=== PATIENT | male | born 1965 | race Caucasian/White ===

== ENCOUNTER 2016-09-12 20:46 | Emergency (ER) | payer MEDICAID, OTHER ==
[~2016-09-12] VITALS: Ht 177.8 cm; Wt 77.3 kg
[2016-09-12 20:49] VITALS: BP 169/106; PULSE 74; RESP 16; O2SAT 100
--- NOTE | 2016-09-12 21:36 | ED.REPORT ---
HPI-Dental/Mouth Prob Date of Service Sep 12, 2016 ED Provider: Eris Mena MD The patient is a 51 year old male who presents to the ED c/o of tooth pain onset last week. He reports associated jaw pain and headache for the past 2 days. Patient has not seen a dentist recently. He reports that he needs multiple teeth extracted. He is not having any difficulty breathing or swallowing. He has not had any fevers. He has not seen a dentist in many years. Nursing Notes Stated Complaint: TOOTH PAIN, HEADACHE Chief Complaint: Dental Nursing Notes Reviewed: Yes Allergies: Coded Allergies: Penicillins (Verified Allergy, Intermediate, hives, 09/12/16) Scheduled PRN Ibuprofen (Ibuprofen) 600 Mg Tablet 600 MG PO QID PRN PRN For Pain General Time Seen by MD: 21:34 Chief Complaint Tooth pain Hx Obtained From: Patient Arrived By: Walk-in Onset Occurred: Just prior to arrival Symptom Duration: Since onset Quality: Painful Severity: Current: Moderate Recent Healthcare: No recent doctor visit, No recent hospitalization Similar Sx Previous: No Past Medical History Past Medical History denies Past Surgical History denies Smoking History Unknown if Ever Smoker Social History Other Social History: Local resident Ambulatory Status Independent Review of Systems Review of Systems Note: jaw pain Constitutional: Denies: Chills, Fever Ears / Nose / Throat: Reports: Toothache Complete sys rev & neg: except as marked. Neurologic: Reports: Headache Physical Exam Initial Vital Signs Vital Signs (First) Date Time Temp Pulse Resp B/P Pulse Ox O2 Delivery O2 Flow Rate FiO2 09/12/16 20:49 37 74 16 169/106 100 Room Air Initial VS: Reviewed ENT: Mucous membranes moist, Tympanic membs NL Dental / Gums: Positive: Dental caries present, Dentition poor multiple dental carries poor dentition throughout no swelling or drainage Neck: Atraumatic, Supple General/Constitutional: Awake, Alert, No acute distress, Cooperative Head / Eyes: Atraumatic, Normocephalic no swelling of face or lips Cardiovascular: Heart rate NL, Regular rhythm Neurologic: Oriented X3, Speech NL, No motor deficits Upper Extremity / MS: Atraumatic, Inspection NL, No deformity Lower Extremity / Pelvis / MS: Atraumatic, Inspection NL, No deformity Skin: Atraumatic, Warm, Dry Re-Eval/Medical Decision Med Decision/Clinical Course The patient is a 51 year old male who presents to the ED c/o of tooth pain onset last week. He reports associated jaw pain and headache for the past 2 days. Patient has not seen a dentist recently. He reports that he needs multiple teeth extracted. He is not having any difficulty breathing or swallowing. He has not had any fevers. He has not seen a dentist in many years. Overall presentation consistent with dental caries. There may be some very mild surrounding abscess though nothing amenable to incision and drainage. Considered other possible causes of dental pain including periapical abscess, gingivitis, Anjum's angina, sinusitis, and molar impaction but these are unlikely based on the history and exam. Discussed with the patient the low cost clinic resources available. Also reviewed precautions for return to the ED and the importance of f/u with a dentist, which he agreed to do. 2140: Pt checked. Plan for Toradol and discharge. Pt understands and agrees with plan. F/U and RTER warnings given. All questions addressed. Prescription for clindamycin given. Counseled Regarding: Diagnosis, Lab results, Need for follow-up, When/why to return to ED Discharge & Departure Primary Impression: Dental caries Additional Impression: Pain, dental Disposition: Home Discharge Condition Condition: Stable Patient Instructions: Dental Caries (ED) Additional Instructions: Thank you for entrusting us with your care today. You need to see a dentist immediately. Return to the Emergency Department for any new or worsening symptoms including fever, chills, vomiting, nausea, increased pain, and bleeding. I hope you feel better soon! Referrals: [facility] (PCP) [facility] Florentino Attestation Portion of this note were transcribed by Melba Pulido. I, Dr. Mena, personally performed the history, physical exam, and medical decision-making: I reviewed and confirmed the accuracy for the information in the transcribed note. Signed by: florentino Green, 09/12/16 2300 copies to: [facility] Eris Mena MD Sep 12, 2016 21:36 Melba Pulido Sep 12, 2016 22:03
[2016-09-12 22:34] VITALS: BP 155/97; PULSE 70; RESP 16; O2SAT 100
[2016-09-12] MEDS ORDERED: IBUP-1827 PO (22:43)
[2016-09-13] MEDS ORDERED: _Clindamycin 150 mg Capsule PO SCH (06:30)
== END 2016-09-12 22:48 | disposition home or self-care (01) ==
LOC: SED 20:46
DX: K02.9 Dental caries, unspecified (principal); R68.84 Jaw pain; R51 Headache; Z88.0 Allergy status to penicillin
CPT/HCPCS: 99283; J1885

== ENCOUNTER 2016-10-06 10:27 | Emergency (ER) | payer OTHER ==
[~2016-10-06] VITALS: Ht 177.8 cm; Wt 81.8 kg
[~2016-10-06 10:27] MED LIST: IBUP-1827 PO
[2016-10-06 10:34] VITALS: BP 137/93; PULSE 59; RESP 18; O2SAT 98
[2016-10-06] MEDS ORDERED: diphenhydrAMINE 25 mg Capsule PO ONE (13:20)
[2016-10-06 13:30] LABS: Mean Corpuscular Hemoglobin 31.9 pg (27.0-35.0); Mean Corpuscular Volume 89.9 fL (81-100); NEUTROPHILS % (AUTO) 65.1 % (40-74); Platelet Count 183 bil/L (150-400)
[2016-10-06 13:31] LABS: BASOPHILS % (AUTO) 0.5 % (0-3); EOSINOPHILS % (AUTO) 2.9 % (0-5); MONOCYTES % (AUTO) 5.7 % (4-12)
--- NOTE | 2016-10-06 13:47 | ED.REPORT ---
HPI-Headache Date of Service Oct 06, 2016 ED Provider: Juan Carlos Gar MD Patient is a 51-year-old male with hepatitis C, history of stroke a couple of years ago, and hypertension who presents to the emergency department with several weeks of headache, tinnitus in both ears worsening approximately one week ago in which she has had before but it is worse than ever. Yesterday he had the feeling disequilibrium, and this morning almost fell into a flower bed as he has been feeling unsteady on his feet. His dizziness seems to be worse when walking. Originally he attributed this to his headaches high blood pressure is even off of his blood pressure medicines but has now restarted his lisinopril and metoprolol. He additionally reports pain at the base of his neck and shoulders. He drinks a lot of water and stay hydrated. He has no abdominal pain., Vision changes, chest pain, shortness of breath, fever, chills , rhinorrhea, or sore throat. Nursing Notes Stated Complaint: HEADACHE,EARS BUZZING,DIZZY,DIFFICULTY WALKING Chief Complaint: Neuro Symptoms/ Deficits Allergies: Coded Allergies: Penicillins (Verified Allergy, Intermediate, hives, 09/12/16) Scheduled Meclizine (Bonine) 25 Mg Tab.chew 25 MG PO TID Scheduled PRN Ibuprofen (Ibuprofen) 600 Mg Tablet 600 MG PO QID PRN PRN For Pain General Time Seen by MD: 12:20 Chief Complaint Headache Hx Obtained From: Patient Arrived By: Walk-in Sudden in Onset?: No Onset Occurred: More than a week ago... (3 weeks) Location: : Generalized (irritating) Past Medical History Past Medical History Hepatitis C Stroke a couple years ago Tympanostomy tubes from age [age] Hypertension Past Surgical History Multiple musculoskeletal and soft tissue surgeries including right flank and right knee Smoking History Current Every Day Smoker (one pack per day), Unknown if Ever Smoker Social History Patient lives at [facility] Alcohol Use: Denies alcohol use Drug Use: Other (former IV drug user clean for 11 years.) Other Social History: Local resident Ambulatory Status Independent Review of Systems A comprehensive review of systems was conducted with the patient and found to be negative except as above in the History of Present Illness. Physical Exam Initial Vital Signs Vital Signs (First) Date Time Temp Pulse Resp B/P Pulse Ox O2 Delivery O2 Flow Rate FiO2 10/06/16 10:34 37.1 59 18 137/93 98 10/06/16 15:23 Room Air Initial VS: Reviewed, Vital signs normal ENT: Mucous membranes moist, Conjunctiva normal, No scleral icterus Respiratory: Breath sounds normal Cardiovascular: Regular rate & rhythm Abdomen / GI: Soft, Non-tender, No distention Extremities: Vascular intact Skin: Warm, Dry, No cyanosis Psychiatric: Mood/affect normal, Behavior normal, Normal thought content General/Constitutional: Awake, Alert, No acute distress Head / Eyes: Atraumatic, Normocephalic, PERRL Eye Movement: Negative: Nystagmus horizontal, Nystagmus rotational Neurologic: Oriented X3, Speech NL, No motor deficits, Cerebellar NL Mildly decreased sensation to left mandibular area residual from previous stroke, no change per patient. Twitching of left angle of mouth with blinking. Scar tissue bump on left lower lip Cardiovascular: Peripheral circulation NL Interpretation & Diagnostics Interpretation & Diagnostics: CBC, CMP unremarkable Lab Results Interpretation Result Diagram: 10/06/16 1310 10/06/16 1310 Test 10/06/16 12:54 10/06/16 13:10 Hold Cazares Top Tube Received (Received) White Blood Count 8.6th/mm3 (3.8-10.1) Red Blood Count 4.76mil/mm3 (4.40-5.80) Hemoglobin 15.2g/dL (13.8-17.2) Hematocrit 42.8% (41.0-50.0) Mean Corpuscular Volume 89.9fL (81-100) Mean Corpuscular Hemoglobin 31.9pg (27.0-35.0) Mean Corpuscular Hemoglobin Concent 35.5% (32.0-37.0) Red Cell Distribution Width 11.9% (12.3-15.4) Platelet Count 183bil/L (150-400) Neutrophils (%) (Auto) 65.1% (40-74) Lymphocytes (%) (Auto) 25.7% (14-46) Monocytes (%) (Auto) 5.7% (4-12) Eosinophils (%) (Auto) 2.9% (0-5) Basophils (%) (Auto) 0.5% (0-3) Sodium Level 139mEq/L (134-144) Potassium Level 4.0mEq/L (3.5-5.2) Chloride Level 104mEq/L (97-108) Carbon Dioxide Level 21mmol/L (18-29) Blood Urea Nitrogen 15mg/dL (6-24) Creatinine 0.82mg/dL (0.76-1.27) Estimat Glomerular Filtration Rate 105mL/min (>59) Glucose Level 91mg/dL (60-99) Calcium Level 9.1mg/dL (8.5-10.1) Total Bilirubin 0.5mg/dL (0.0-1.2) Aspartate Amino Transf (AST/SGOT) 20U/L (0-50) Alanine Aminotransferase (ALT/SGPT) 22U/L (0-44) Alkaline Phosphatase 34U/L (25-150) Total Protein 6.8g/dL (6.4-8.4) Albumin 4.4g/dL (3.4-5.0) Re-Eval/Medical Decision Med Decision/Clinical Course Patient complains of headache and dizziness with slow onset over the last week. He additionally has tinnitus. She was given Benadryl and Reglan with improvement of his headache. Patient has taken meclizine or similar medication in the past to help with dizziness. No gross abnormalities and laboratory evaluation. He was given a prescription for meclizine and discharged home with improvement of symptoms. Discharge & Departure Impression: Primary Impression: Headache Headache type: tension-type Headache chronicity pattern: episodic headache Intractability: not intractable Qualified Code: G44.219 - Episodic tension- type headache, not intractable Additional Impression: Dizziness Disposition: Home Discharge Condition All VS Reviewed: Yes Patient Instructions: Acute Headache (ED) Additional Instructions: Please call the residency clinic to schedule an appointment with her primary care provider. Make sure to mention that you need a emergency room follow-up. I am glad to hear that her headache has improved. You will be given a prescription for meclizine to help with the dizziness. If you have acute onset headache that is the worst headache of your life return to the emergency department. Referrals: [facility] Res[facility] (PCP) Attending Statement The patient was seen and examined together with Dr. Workman on 10/06/16 and I agree with the history, exam and plan as outlined in the note above. copies to: [facility] Dang Workman DO Oct 06, 2016 13:47 Juan Carlos Gar MD Oct 06, 2016 22:41
[2016-10-06] MEDS ORDERED: MECL-114 PO (15:12)
[2016-10-06 15:23] VITALS: BP 151/67; PULSE 62; RESP 16; O2SAT 97
== END 2016-10-06 15:24 | disposition home or self-care (01) ==
LOC: SED 10:27
DX: G44.219 Episodic tension-type headache, not intractable (principal); R42 Dizziness and giddiness; W18.39XA Other fall on same level, initial encounter; Y93.89 Activity, other specified; Y92.89 Other specified places as the place of occurrence of the external cause; Y99.8 Other external cause status; I10 Essential (primary) hypertension; F17.200 Nicotine dependence, unspecified, uncomplicated; Z86.73 Personal history of transient ischemic attack (TIA), and cerebral infarction without residual deficits; Z88.0 Allergy status to penicillin